=== PATIENT | female | born 1970 | race Caucasian/White ===

== ENCOUNTER 2021-05-26 16:01 | Inpatient (IN) ==
[2021-05-26 17:46] LABS: Albumin 3.1 G/DL (3.4-5.0); Bilirubin,Total 4.5 MG/DL (0.20-1.00); Calcium 9.1 MG/DL (8.5-10.1); Osmolality,Calculated 287.4 MOS/KG (273-304); Potassium 3.9 MMOL/L (3.5-5.1); Total Protein 7.9 G/DL (6.4-8.2)
[2021-05-26] MEDS ORDERED: ONDANSETRON 4 MG/2 ML VIAL IV PRN (18:04)
[2021-05-26] MEDS: HYDROmorphone 2 MG/1 ML VIAL IV PRN ×2 (18:36→23:28)
[2021-05-26] MEDS: LACTATED RINGERS 1,000 ML IV SCH ×2 (18:36→23:28)
[2021-05-26] MEDS ORDERED: ONDANSETRON ODT 4 MG TABLET PO PRN (19:57)
[2021-05-26] MEDS ORDERED: INSULIN GLARGINE 100 UNIT/ML SUBCUT SCH (21:00)
[2021-05-26 22:03] LABS: Basophils # 0.1 10*3/uL (0.0-0.2); Basophils % 0.3 % (0.0-0.8); Hemoglobin 11.2 GM/DL (12.0-16.0); Immature Granulocytes % 0.5 %; Immature Granulocytes Absolute 0.09 #; Lymphocytes # 0.8 10*3/uL (1.4-4.0); Lymphocytes % 4.9 % (21.3-54.2); Mean Corpuscular HGB Conc 29.2 GM/DL (32-36); Mean Corpuscular Volume 70.6 FL (87-102); Mean Platelet Volume 10.4 FL (9.6-12.0); Monocytes % 5.9 % (1.7-12.7); Neutrophils % 88.4 % (38.7-73.9); Platelet Count 453 T/CUMM (130-400); Red Blood Count 5.44 MC/CUMM (3.8-5.5); Red Cell Distribution Width 19.3 % (9.3-17.3); White Blood Count 16.9 T/CUMM (4-12)
[2021-05-26 22:06] LABS: Hematocrit 38.4 VOL% (35.7-47.0)
[2021-05-26 22:21] LABS: Lymphocytes 3 % (20-55); Platelet Estimate Increased; Segmented Neutrophils 93 % (50-85); Total Cells Counted 100
[2021-05-27] MEDS: LACTATED RINGERS 1,000 ML IV SCH ×6 (01:32→22:04)
[2021-05-27] MEDS: LEVOTHYROXINE 88 MCG TABLET PO SCH (06:05)
[2021-05-27] MEDS ORDERED: PANTOPRAZOLE 40 MG TABLET PO SCH (09:00)
[2021-05-27] MEDS: CITALOPRAM 40 MG TABLET PO SCH (09:03)
[2021-05-27] MEDS: lisinopriL 10 MG TABLET PO SCH (09:03)
[2021-05-27] MEDS ORDERED: MORPHINE 4 MG/1 ML VIAL IV PRN ×2 (09:54)
[2021-05-27] MEDS ORDERED: ONDANSETRON 4 MG/2 ML VIAL IV PRN (09:55)
[2021-05-27] MEDS: KETOROLAC 15 MG/1 ML VIAL IV SCH ×3 (10:41→21:37)
[2021-05-27] MEDS: PIPERACILLIN/TAZOBACTAM 3,375 MG in SODIUM CHLORIDE 0.9% 100 ML IV SCH ×2 (10:41→18:03)
[2021-05-27] MEDS ORDERED: hydrALAZINE 20 MG/1 ML VIAL IV PRN (11:22)
[2021-05-27] MEDS ORDERED: DEXTROSE 10% 250 ML BAG IV PRN (11:22)
[2021-05-27] MEDS ORDERED: GLUCAGON 1 MG VIAL IM PRN (11:22)
[2021-05-27 11:29] LABS: Albumin 2.9 G/DL (3.4-5.0); Bilirubin,Total 3.8 MG/DL (0.20-1.00); Calcium 9.1 MG/DL (8.5-10.1); Osmolality,Calculated 273.1 MOS/KG (273-304); Potassium 3.4 MMOL/L (3.5-5.1); Total Protein 7.2 G/DL (6.4-8.2)
[2021-05-27 11:36] LABS: Basophils % 0.3 % (0.0-0.8); Eosinophils # 0.1 10*3/uL (0.0-0.87); Eosinophils % 0.8 % (0.00-10.9); Hematocrit 32.7 VOL% (35.7-47.0); Hemoglobin 9.7 GM/DL (12.0-16.0); Immature Granulocytes % 0.5 %; Immature Granulocytes Absolute 0.04 #; Lymphocytes # 1.5 10*3/uL (1.4-4.0); Lymphocytes % 17.2 % (21.3-54.2); Mean Corpuscular HGB Conc 29.7 GM/DL (32-36); Mean Corpuscular Volume 68.6 FL (87-102); Mean Platelet Volume 9.8 FL (9.6-12.0); Monocytes % 6.1 % (1.7-12.7); Neutrophils % 75.1 % (38.7-73.9); Platelet Count 320 T/CUMM (130-400); Red Blood Count 4.77 MC/CUMM (3.8-5.5); Red Cell Distribution Width 18.6 % (9.3-17.3); White Blood Count 8.8 T/CUMM (4-12)
[2021-05-27] MEDS ORDERED: ENOXAPARIN 40 MG/0.4 ML SYRINGE SUBCUT SCH (12:00)
[2021-05-27 12:06] LABS: Hepatitis B Core IgM Quant 0.15 Index; Hepatitis B Surface Ag Quant < 0.10 Index; Hepatitis B Surface Ag Result Non-Reactive (NonReactive); Hepatitis C Virus Ab Quant 0.09 Index; Hepatitis C Virus Ab Result Non-Reactive (NonReactive)
[2021-05-27 12:33] LABS: VLDL Cholesterol 37.8 MG/DL
[2021-05-27] MEDS: INSULIN LISPRO 100 UNIT/ML SUBCUT SCH ×3 (13:09→20:01)
[2021-05-27] MEDS ORDERED: POTASSIUM CHLORIDE 20 MEQ TABLET PO ONE (13:30)
[2021-05-27] MEDS: INSULIN GLARGINE 100 UNIT/ML SUBCUT SCH (20:02)
[2021-05-27] MEDS: PANTOPRAZOLE 40 MG VIAL IV SCH (21:37)
[2021-05-28] MEDS: LACTATED RINGERS 1,000 ML IV SCH ×3 (01:34→16:04)
[2021-05-28] MEDS: PIPERACILLIN/TAZOBACTAM 3,375 MG in SODIUM CHLORIDE 0.9% 100 ML IV SCH (01:34)
[2021-05-28] MEDS: LEVOTHYROXINE 88 MCG TABLET PO SCH (05:47)
[2021-05-28] MEDS: KETOROLAC 15 MG/1 ML VIAL IV SCH ×4 (05:48→22:59)
[2021-05-28 06:08] LABS: Albumin 2.7 G/DL (3.4-5.0); Bilirubin,Total 1.8 MG/DL (0.20-1.00); Calcium 9.3 MG/DL (8.5-10.1); Osmolality,Calculated 277.5 MOS/KG (273-304); Potassium 3.8 MMOL/L (3.5-5.1); Total Protein 7.1 G/DL (6.4-8.2)
[2021-05-28 06:33] LABS: Bilirubin,Direct 1.34 MG/DL (0.0-0.20)
[2021-05-28 06:35] LABS: Basophils % 0.4 % (0.0-0.8); Eosinophils # 0.1 10*3/uL (0.0-0.87); Eosinophils % 0.7 % (0.00-10.9); Hemoglobin 9.8 GM/DL (12.0-16.0); Immature Granulocytes % 0.5 %; Immature Granulocytes Absolute 0.04 #; Lymphocytes # 1.3 10*3/uL (1.4-4.0); Lymphocytes % 17.5 % (21.3-54.2); Mean Corpuscular Volume 70.1 FL (87-102); Monocytes % 8.1 % (1.7-12.7); Neutrophils % 72.8 % (38.7-73.9); Platelet Count 281 T/CUMM (130-400); Red Blood Count 4.82 MC/CUMM (3.8-5.5); Red Cell Distribution Width 19.1 % (9.3-17.3); White Blood Count 7.4 T/CUMM (4-12)
[2021-05-28 06:36] LABS: Hematocrit 33.8 VOL% (35.7-47.0)
[2021-05-28] MEDS: INSULIN LISPRO 100 UNIT/ML SUBCUT SCH ×4 (07:51→21:33)
[2021-05-28] MEDS: CITALOPRAM 40 MG TABLET PO SCH (09:40)
[2021-05-28] MEDS: lisinopriL 10 MG TABLET PO SCH (09:40)
[2021-05-28] MEDS: AMOXICILLIN/CLAV 875 MG TABLET PO SCH ×2 (09:40→21:23)
[2021-05-28] MEDS: PANTOPRAZOLE 40 MG VIAL IV SCH ×2 (09:41→21:23)
[2021-05-28] MEDS: INSULIN GLARGINE 100 UNIT/ML SUBCUT SCH (21:25)
[2021-05-29] MEDS: LEVOTHYROXINE 88 MCG TABLET PO SCH (05:59)
[2021-05-29] MEDS: KETOROLAC 15 MG/1 ML VIAL IV SCH ×2 (06:00→10:00)
[2021-05-29] MEDS: LACTATED RINGERS 1,000 ML IV SCH (06:01)
[2021-05-29 06:52] LABS: Bilirubin,Direct 0.62 MG/DL (0.0-0.20)
[2021-05-29 06:53] LABS: % Iron Saturation 5.8 % (18-50)
[2021-05-29] MEDS: INSULIN LISPRO 100 UNIT/ML SUBCUT SCH ×2 (08:06→13:26)
[2021-05-29] MEDS ORDERED: propofoL 200 MG/20 ML VIAL IV ONE ×2 (08:44→09:01)
[2021-05-29] MEDS ORDERED: LIDOCAINE 2% 5 ML VIAL ONE (08:44)
[2021-05-29] MEDS: CITALOPRAM 40 MG TABLET PO SCH (09:59)
[2021-05-29] MEDS: lisinopriL 10 MG TABLET PO SCH (09:59)
[2021-05-29] MEDS: AMOXICILLIN/CLAV 875 MG TABLET PO SCH (09:59)
[2021-05-29] MEDS: PANTOPRAZOLE 40 MG VIAL IV SCH (10:00)
[2021-05-29 12:09] VITALS: BP 132/65
== END 2021-05-29 13:00 | disposition home or self-care (01) | DRG 439 ==
LOC: SUATTDRO 16:21 → N.3E 16:21
PROVIDERS: ADMIT Surgery; ATTEND Internal Medicine